=== PATIENT | female | born 1960 | race Caucasian/White ===

== ENCOUNTER → 2017-07-23 | Outpatient (CLI) | payer BC ==
[~2017-07-23] MED LIST: AMBEREN; AUGMENTIN 875875 MG PO; AZITHROMYCIN 2250 MG PO; CALCIUM 600 +1 EAC1 PO; CENTRUM SILVER1 EAC4 PO; DIPHENHYDRAMINE25 M3 PO; GLUCOPHAGE1000 MG PO; GOLYTELY4000 M1 GT; HYDROCODON-ACE1 EAC8 PO; LISINOPRIL10 MG PO; MAGNES; MIRALAX17 GM PO; PREDNISONE 10 M10 M1 PO; VITAMIN C120 GM; VITAMIN D1000 UNI1 PO; VITAMINC500 PO; XANAX XR1 MG PO; ZOCOR 20 MG TAB20 M1 PO
== END ==
LOC: RAD 14:41
DX: Z12.31 Encounter for screening mammogram for malignant neoplasm of breast (principal)